=== PATIENT | female | born 1975 | race Caucasian/White ===

== ENCOUNTER 2024-10-18 15:13 | Emergency (ER) | payer OTHER, SELFPAY ==
--- NOTE | ~2024-10-18 | CT_ITS ---
CLINICAL HISTORY: headache HTN CT head without contrast Comparison: None provided Findings: No intra-axial mass, midline shift, hydrocephalus, or acute hemorrhage. No significant atrophy-like change or white matter disease. There is no sinus or mastoid fluid. The orbits are unremarkable. No skull fracture. IMPRESSION: 1. No acute intracranial findings. This document has been electronically signed by: Johnny Constantino MD on 10/18/2024 23:13:08
[2024-10-18 15:28] VITALS: BP 157/71; PULSE 54; RESP 16; TEMP 36.4; O2SAT 95; BMI 47.2
--- NOTE | 2024-10-18 15:30 | ED_ITS ---
HPI - Headache General Chief Complaint: Headache Stated Complaint: headache, increase bp Time Seen by Provider: 10/18/24 20:54 Source: patient and old records reviewed Mode of arrival: ambulatory Limitations: no limitations History of Present Illness ED Provider: ELVA MCKAY Narrative: 49 yo female with PMH of HTN was on 25mg HCTZ and 20mg lisinopril until 6 months ago she did not see her PCP so she has no medications. For 3 days she has frontal pressure and headaches and feels her eyes are foggy. She has no focal deficits/numbness/weakness/CP/sob and she has no recent fevers or head trauma. She has had this before with her BP. MD elicited complaint: headache Pertinent past history: hypertension Onset (ago): day(s) (3) Onset description: gradually Location: frontal Severity: moderate Quality & Timing: aching and dull Exacerbating factors: none Relieving factors: nothing Context: occurred at rest Associated symptoms: eye pain Treatments prior to arrival: none Related Data Previous Rx's ?Medication ?Instructions ?Recorded blood pressure monitor (Blood #1 ea 10/18/24 Pressure Kit) hydrochlorothiazide 25 mg tablet 25 mg PO DAILY #30 ta bs 10/18/24 lisinopril 5 mg tablet 5 mg PO DAILY #30 tabs 10/18 Allergies Allergy/AdvReac Type Severity Reaction Status Date / Time latex (Latex) Allergy Mild RASH Verified 10/18/24 15:29 Review of Systems 2 Review of Systems: Constitutional : No Fever, No Chills, No Fatigue ENT/Mouth : No sore throat, No Rhinorrhea Eyes: No Eye Pain, No Swelling, No Redness Cardiovascular : No Chest Pain, No SOB, No Dyspnea on Exertion Respiratory : No Cough, No Sputum Gastrointestinal : No Nausea, No Vomiting, No Diarrhea, No abdominal Pain Genitourinary : No Dysuria, No Urinary Frequency, No Hematuria, Musculoskeletal : No joint pain, No Myalgias, No Joint Swelling Skin : No Skin Lesions, No rash Neuro : No Weakness, No Numbness, No Dizziness, positive Headache Psych : No Anxiety/Panic, No Depression Heme/Lymph: No Bruising, No Bleeding,No Lymphadenopathy Endocrine : No Polyuria, No Polydipsia All other systems reviewed and are negative [facility] Past Medical History Attestation statement: The following information was validated with the patient. Source: old records reviewed Medical History HTN (hypertension) Social History Social History (Updated 10/18/24 @ 21:37 by Hetal Kelly DO) Patient Tobacco Use Status: Tobacco use Unknown Smoked in Last 30 Days: Yes Use of substances other than those prescribed or required for medical reasons: No Advance Directives: No Advance Directives Information Provided: No Patient : No Physical Exam 2 Vital Signs: Vital Signs: Last Vital Signs Temp 98.1 F 10/18/24 20:39 Pulse 47 L 10/18/24 23:08 Resp 18 10/18/24 23:08 BP 174/83 H 10/18/24 23:08 Pulse Ox 100 10/18/24 23:08 O2 Del Method Room Air 10/18/24 23:08 BMI result Body Mass Index 47.2 Appearance: Alert. Oriented X3. No acute distress. Eyes: Pupils equal, round and reactive to light. ENT: Pharynx normal. Neck: Normal inspection. Neck supple. no meningeal signs CVS: Normal heart rate and rhythm. Pulses normal. Respiratory: No respiratory distress. Breath sounds normal. Abdomen: Soft and nontender. Skin: Skin warm and dry. Normal skin color. Extremities: No lower extremity edema. Neuro: Oriented X 3. No motor deficit. No sensory deficit. CN2-12 intact. normal gait Course Course Course Narrative: This is a Rapid Medical Examination (RME) performed by Andrey Sharma PA-C in triage. Full HPI, ROS, assessment and treatment plan per primary provider in the Main ED. Hx: 49 yo F here w/ headache and elevated BP readings x few days (140s/90s). LUKE 09/16. non compliant with BP m eds. Plan: labs, ekg Medications Administered Discontinued Medications Generic Name Dose Route Start Last Admin Trade Name Freq PRN Reason Stop Dose Admin Hydrochlorothiazide 25 mg 10/18/24 21:05 10/18/24 21:34 Hydrochlorothiazide 25 Mg Tablet PO 10/18/24 21:06 25 mg ONCE ONE Administration Protocol Oxycodone HCl 5 mg 10/18/24 20:56 10/18/24 21:34 Oxycodone Hcl Immed Release 5 Mg Tablet PO 10/18/24 20:57 5 mg ONCE ONE Administration Medical Decision Making Medical Decision Making MDM Narrative: 49 yo female with PMH of HTN was on 25mg HCTZ and 20mg lisinopril now here with c/o headaches but no focal deficits on exam and her headache is mild she has normal neuro exam and neck is supple I do not suspect SAH or ICH. She will get CT scan to rule out mass, monitor labs for NICOLASA and resume her HCTZ 25mg. No sig signs of end organ dysfunction on exam Differential Diagnosis Differential Diagnoses: The differential diagnosis associated with the presentation includes tension, HTN Admission/Observation Consideration of admission/observation: Escalation of care including admission/observation considered BP down feels better can be managed as outpatient Lab Data [facility] Lab Attestation statement: I reviewed the patient's lab results. mild anemia 10/18/24 15:43 10/18/24 15:43 Labs: Lab Results 10/18/24 Range/Units 15:43 WBC 7.1 (4.8-10.8) X10*3/uL RBC 3.85 L (4.20-5.50) X10*6/uL Hgb 10.9 L (12.0-16.0) g/dl Hct 33.0 L (37.0-47.0) % MCV 85.7 (80.0-98.0) fL MCH 28.3 (27.0-33.0) pg MCHC 33.0 (31.0-35.0) g/dl RDW 15.0 (11.0-16.0) % Plt Count 196 (160-400) X10*3/uL MPV 10.6 (9.4-12.3) fL Immature Gran % (Auto) 0.3 (0.0-0.4) % Neut % (Auto) 59.2 (45-73) % Lymph % (Auto) 33.1 (20-40) % [place] % (Auto) 5.9 (2-11) % Eos % (Auto) 1.1 (0-4) % Baso % (Auto) 0.4 (0-2) % Lymph # (Auto) 2.3 (1.2-4.9) X10*3/uL [place] # (Auto) 0.4 (0.1-1.2) X10*3/uL Eos # (Auto) 0.1 (0.0-0.4) X10*3/uL Baso # (Auto) 0.0 (0.0-0.2) X10*3/uL Abs Immat Gran (auto) 0.02 (0.00-0.03) X10*3/uL Absolute Neuts (auto) 4.2 (2.0-8.3) x10*3/uL Absolute Nucleated RBC 0.000 (0.0-0.012) X10*3/uL Nucleated RBC % (auto) 0.0 (0.0-0.2) /100WBC Sodium 139 (135-145) mmol/L Potassium 3.9 (3.3-5.1) mmol/L Chloride 106 (96-108) mmol/L Carbon Dioxide 28 (22-29) mmol/L Anion Gap 9 L (12-20) BUN 19 H (9-16) mg/dL Creatinine 0.88 (0.5-1.4) mg/dL Estim Creat Clear Calc 98.7 Estimated GFR > 60 Random Glucose 98 (60-115) mg/dL Calcium 8.5 (8.4-10.2) mg/dL Magnesium 1.9 (1.6-2.6) mg/dL Total Bilirubin 0.2 (0.0-1.0) mg/dL AST 18 (5-31) U/L ALT 8 (0-31) U/L Alkaline Phosphatase 62 (39-117) U/L Troponin I High Sens < 2.7 (<3.5-17.0) ng/L Total Protein 6.4 L (6.5-8.0) g/dL Albumin 3.6 (3.5-5.0) g/dL Independent Interpretation I performed an independent interpretation of an: EKG and CT Scan (normal ) Interpretation: Rate: 57 Rhythm: sinus bradycardia with PACs x 1 Watson: left, LVH Normal P waves. Normal TANNER. Normal QRS complex. ST T wave : inverted t waves III, V1, no RADHA qTC: 408 prior studies: hx of same in past t waves are old The study has been interpreted contemporaneously by me. . Radiology Impression Discussion of test interpretation with radiology: I have reviewed the radiologist's reading. External Record Review External record reviewed: Outpatient record Prescription Management I considered prescription management with: Other Discharge Plan Discharge Clinical Impression: Tension headache Hypertension Qualifiers: Hypertension type: unspecified Qualified Code(s): I10 - Essential (primary) hypertension Patient Disposition: Home, Self-Care Instructions: Tension Headache (ED), Chronic Hypertension (ED) Additional Instructions: labs, EKG and CT head reassuring you have mild anemia your doctor should monitor this over the next 2 weeks take your medications as prescribed - return for blood pressures over 170 with chest pains and headaches or signs of stroke such as speech changes, weakness, difficulty walking, or any other concerns. If your blood pressure remains greater than 150 top number and you still have a headache please start the lisinopril 5mg - wait 5 days to see if your blood pressure improves with the hydrochlorothiazide first Findings: No intra-axial mass, midline shift, hydrocephalus, or acute hemorrhage. No significant atrophy-like change or white matter disease. There is no sinus or mastoid fluid. The orbits are unremarkable. No skull fracture. IMPRESSION: 1. No acute intracranial findings. Prescriptions: New hydrochlorothiazide 25 mg tablet 25 mg PO DAILY Qty: 30 2RF lisinopril 5 mg tablet 5 mg PO DAILY Qty: 30 1RF (DME) blood pressure monitor [Blood Pressure Kit] Kit See Rx Instructions .Route Qty: 1 0RF Rx Instructions: As directed check blood pressure morning and night Print Language: Tongan
--- NOTE | 2024-10-18 15:32 | ECG_ITS ---
Test Reason : ELEVATED BPS Blood Pressure : */* mmHG Vent. Rate : 57 BPM Atrial Rate : 57 BPM P-R Int : 124 ms QRS Dur : 98 ms QT Int : 420 ms P-R-T Axes : 36 -12 -8 degrees QTcB Int : 408 ms Sinus bradycardia with Premature atrial complexes with Aberrant conduction Minimal voltage criteria for LVH, may be normal variant ( R in aVL ) Borderline ECG When compared with ECG of 28-Dec-2016 16:56, Aberrant conduction is now Present Nonspecific T wave abnormality now evident in Anterior leads Referred By: Shruthi Sharma Electronically Signed By: RU JACKSON MD
[2024-10-18 15:48] LABS: MANUAL DIFF FLAG NO
[2024-10-18 15:50] LABS: Hematocrit 33.0 % (37.0-47.0); Hemoglobin 10.9 g/dl (12.0-16.0); Imm Gran Abs Auto 0.02 X10*3/uL (0.00-0.03); Imm Gran Pct Auto 0.3 % (0.0-0.4); Lymphocytes Absolute Auto 2.3 X10*3/uL (1.2-4.9); Mean Corpuscular HGB Conc 33.0 g/dl (31.0-35.0); Mean Corpuscular Hemoglobin 28.3 pg (27.0-33.0); Mean Corpuscular Volume 85.7 fL (80.0-98.0); NRBC Abs Auto 0.000 X10*3/uL (0.0-0.012); NRBC Pct Auto 0.0 /100WBC (0.0-0.2); Platelet Count 196 X10*3/uL (160-400); Red Blood Count 3.85 X10*6/uL (4.20-5.50); White Blood Count 7.1 X10*3/uL (4.8-10.8)
[2024-10-18 16:03] LABS: Alanine Aminotransferase 8 U/L (0-31); Albumin Level 3.6 g/dL (3.5-5.0); Anion Gap 9 (12-20); Aspartate Amino Transferase 18 U/L (5-31); Blood Urea Nitrogen 19 mg/dL (9-16); Calcium 8.5 mg/dL (8.4-10.2); Carbon Dioxide 28 mmol/L (22-29); Chloride 106 mmol/L (96-108); Creatinine Clr Calc Pharmacy 98.7; Estimated Glomerular Filt Rate > 60; Magnesium 1.9 mg/dL (1.6-2.6); Potassium 3.9 mmol/L (3.3-5.1); Sodium 139 mmol/L (135-145); Total Protein 6.4 g/dL (6.5-8.0)
[2024-10-18 16:09] LABS: Troponin-I High Sensitivity < 2.7 ng/L (<3.5-17.0)
[2024-10-18 16:13] LABS: Alkaline Phosphatase 62 U/L (39-117)
[2024-10-18 20:39] VITALS: BP 179/78; PULSE 55; RESP 16; TEMP 36.7; O2SAT 98
[2024-10-18 20:57] VITALS: BP 153/84; PULSE 54; RESP 16; O2SAT 100
[2024-10-18 21:34] VITALS: BP 153/84
[2024-10-18] MEDS: oxyCODONE HCl Immed Release 5 MG TABLET PO (21:34)
[2024-10-18 23:08] VITALS: BP 174/83; PULSE 47; RESP 18; O2SAT 100
--- NOTE | 2024-10-18 23:16 | MHC.EDTECH ---
Patient ambulating independently to the bathroom with a steady gait.
[2024-10-19 00:13] VITALS: BP 150/86; PULSE 52; RESP 16; TEMP 36.7; O2SAT 98
== END 2024-10-19 00:15 | disposition home or self-care (01) ==
PROVIDERS: Physician Assistant Medical; Emergency Provider Emergency Medicine; PCP Nurse Practitioner Family
DX: R51.9 Headache, unspecified (principal); I10 Essential (primary) hypertension; H57.13 Ocular pain, bilateral; R00.1 Bradycardia, unspecified; Z79.899 Other long term (current) drug therapy
CPT/HCPCS: 36415; 70450; 80053; 83735; 84484; 85025; 93005; 96372; 99284; J1885

== ENCOUNTER → 2024-10-18 15:32 | Outpatient (BNV) | payer OTHER, SELFPAY | PROVIDERS: Emergency Provider Emergency Medicine; PCP Nurse Practitioner Family; Visit Provider Internal Medicine Cardiovascular Disease | DX: I49.1 Atrial premature depolarization (principal); R00.1 Bradycardia, unspecified | CPT/HCPCS: 93010 ==

== ENCOUNTER → 2024-10-18 20:56 | Outpatient (BNV) | payer OTHER, SELFPAY | PROVIDERS: Emergency Provider Emergency Medicine; PCP Nurse Practitioner Family; Visit Provider Radiology Diagnostic Radiology | DX: I10 Essential (primary) hypertension (principal) | CPT/HCPCS: 70450 ==